=== PATIENT | female | born 1965 | race Caucasian/White ===

== ENCOUNTER 2022-04-27 16:04 | Inpatient (IN) ==
--- NOTE | 2022-04-27 17:03 | EKG ---
Test Reason : TACHYCARDIA Blood Pressure : */* mmHG Vent. Rate : 99 BPM Atrial Rate : 99 BPM P-R Int : 118 ms QRS Dur : 96 ms QT Int : 380 ms P-R-T Axes : 56 43 37 degrees QTc Int : 487 ms Normal sinus rhythm Septal infarct , age undetermined Lateral infarct , age undetermined Abnormal ECG No previous ECGs available Confirmed by Josué Hayes ([id number]) on 04/27/2022 6:08:14 PM Referred By: Confirmed By: Josué Hayes
[2022-04-27 17:08] LABS: ALANINE AMINOTRANSFERASE 8 Units/L (12-78); ALBUMIN 3.1 g/dL (3.4-5.0); ALKALINE PHOSPHATASE 78 Units/L (46-116); ASPARTATE AMINO TRANSFERASE 23 Units/L (15-37); BLOOD UREA NITROGEN 5 mg/dL (7-18); CALCIUM 8.4 mg/dL (8.5-10.1); CARBON DIOXIDE 29.8 mmol/L (21-32); CHLORIDE 107 mmol/L (98-107); COR CA(FOR HYPOALB) 9.1 mg/dL (8.5-10.1); SODIUM 144 mmol/L (136-145); TOTAL PROTEIN 6.1 g/dL (6.4-8.2); eGFR NON BLACK RACES > 60 (>60)
[2022-04-27 17:23] LABS: BILIRUBIN,URINE 1+ (NEGATIVE); BLOOD/HEMOGLOBIN,URINE 1+ (NEGATIVE); GLUCOSE, URINE NEGATIVE (NEGATIVE); KETONES,URINE 1+ (NEGATIVE); LEUKOCYTE ESTERASE ,URINE 1+ (NEGATIVE); NITRITES,URINE NEGATIVE (NEGATIVE); PROTEIN,URINE 2+ (NEGATIVE); UROBILINOGEN,URINE 3+ (NORMAL)
--- NOTE | 2022-04-27 17:23 | DR.GENAD ---
HPI Time Seen Time Seen by Provider: 04/27/22 17:00 PCP Primary Care Physician: KYMBERLY Complaint/Symptoms Chief Complaint Doctors Comments: BROUGHT IN BY CHER KWON BECAUSE SHE WAS EMACIATED AT HOME AND HAD BEEN WITHOUT FOOD AND ELECTRICITY AND WATER FOR ABOUT 2 WEEKS AND HER MOTHER WHO IS HER CAETAKER 2 DAYS AGO. HERE FOR FURTHER EVALUATION. Chief Complaint:: PT. WAS BROUGHT INTO THE ER PER NOAH OSBORN AUTOMATIC OUTSOLE CUTTER. PT'S MOTHER TODAY AND PT. IS NOW HOMELESS. PT. HAS SWELLING TO BLE. PT. HAS NOT SEEN A DOCTOR IN OVER A YEAR. PT. HAS NOT HAD ANYTHING TO EAT OR DRINK SINCE THE LIGHTS WERE TURNED OFF ON Apr. NO RUNNING WATER AT HOME NOR ANY FOOD IN THE HOME. POOR LIVING CONDITIONS ACCORDING TO APS. PT. DENIES PAIN. MOTHER HAD BEEN FOR ABOUT 2 DAYS PRIOR TO PT. LETTING SOMEONE KNOW MOTHER HAD PASSED. COVID-19 Coronavirus risk:travel/contact w/high risk person: No Has patient experienced Coronavirus symptoms: No Source History Provided: Patient and Other Mode of Arrival Mode of Arrival: Ambulatory Timing Onset of Chief Complaint: 04/27/22 PMH PMH Past Medical History: No Past Surgical History: No Surgical History: No History Family History History of Family Medical Conditions: No Social History Does patient currently use any type of tobacco product: No Have you used tobacco products in the last 12 months: No Type of Tobacco Use: None Does any household member use tobacco: No Alcohol Use: None Do you use any recreational Drugs:: No Lives Where: Homeless Travel Risk Coronavirus risk:travel/contact w/high risk person: No Has patient experienced Coronavirus symptoms: No Infectious screening In the last 2 months have you had wt loss of >10#?: NO Have you had fever, night sweats or hemotysis?: No Have you traveled outside the country in the last 6 months?: No Isolation: Standard ROS Review of Systems Constitutional: Malaise, Weakness, Fatigue and Other (CACHECTIC,MALNURISHED,ANEMIC) Eyes: No Symptoms Reported ENTM: No Symptoms Reported Respiratoy: No Symptoms Reported Cardiovascular: No Symptoms Reported Gastrointestinal/Abdominal: No Symptoms Reported Genitourinary: No Symptoms Reported Neurological: No Symptoms Reported Musculoskeletal: No Symptoms Reported Integumentary: No Symptoms Reported Hematologic/Lymphatic: Anemia Endocrine: No Symptoms Reported Psychiatric: No Symptoms Reported PE Vital Signs Vitals: Temperature 99.2 F Pulse Rate 90 Respiratory Rate 18 Blood Pressure 128/62 O2 Sat by Pulse Oximetry 100 General Limitations: Physical Limitation (PHYSICAL LIMITATIONS DUE TO WEAKNESS) General Appearance: Lethargic and Cachectic Head Head Exam: Normal Inspection, Atraumatic and Normocephalic Eyes Eye exam: Normal Appearance and EOMI ENT ENT Exam: Normal Exam, Normal Oropharynx and Normal External Ear Exam External Ear Exam: Normal External Inspection TM/Canal Exam: Bilateral: Normal Nose Exam: Normal Nose Exam Mouth Exam: Normal Inspection Throat Exam: Normal Inspection Neck Neck Exam: Normal Inspection Chest Chest Inspection: Normal Inspection and Symmetric Chest Wall Rise Respiratory Respiratory Exam: Normal Lung Sounds Bilat Respiratory Exam: Bilateral: Clear to Auscultation Cardiovascular Cardiovascular Exam: Tachycardia Abdominal Exam Abdominal Exam: Normal Inspection and Normal Bowel Sounds Extremities Extremities Exam: Edema (NON PITTING EDEMA) Back Back Exam: Normal Inspection and Full ROM Neurologic Neurological Exam: Alert, Oriented X3 and CN II-XII Intact Psychiatric Psychiatric Exam: Normal Affect Skin Skin Exam: Warm, Dry and Intact MDM Differential Diagnosis Differential Diagnosis: MALNOURISHED, CACHECTIC,ANEMIA,DEHYDRATION COURSE Treatment Treatment: PATIENT WAS FOUND TO BE ANEMIC WITH HGB OF 5.7 AND HEART RATE BETWEEN 140-180. WAS GIVEN A TOTAL OF 15MG OF CARDIXEM BEFORE HEART RATE DECREASED TO THE NINETIES. WAS GIVEN A BOLUS OF 1 LITER NACL AND 800MG OF MAG OXIDE AND 40 MEQ OF KCL. PATIENT WAS SIGNED OUT TO DR YODER FOR FURTHER EVALUATION AND PROBABLE ADMISSION. ROR Labs Reviewed Result Diagrams: 04/29/22 03:40 04/29/22 03:40 Laboratory: WBC 4.2 X10^3/uL (3.6-10.0) 04/27/22 16:50 RBC 4.26 X10^6/uL (3.5-5.4) 04/27/22 16:50 Hgb 5.4 g/dL (12.0-16.0) L* 04/27/22 16:50 Hct 20.8 % (36.0-47.0) L 04/27/22 16:50 MCV 48.8 fL (80.0-100.0) L 04/27/22 16:50 MCH 12.7 pg (27.0-34.0) L 04/27/22 16:50 MCHC 26.1 g/dL (33.0-35.0) L 04/27/22 16:50 RDW 23.5 % (11.6-16.5) H 04/27/22 16:50 Plt Count 95 X10^3/uL (150.0-450.0) L 04/27/22 16:50 Plt Count Comment Decreased (ADEQUATE) A 04/27/22 16:50 MPV 8.1 fL (7.4-11.0) 04/27/22 16:50 Neut % (Auto) 52.6 % (42.0-75.0) 04/27/22 16:50 Lymph % (Auto) 30.5 % (21.0-51.0) 04/27/22 16:50 [place] % (Auto) 12.1 % (0.0-13.0) 04/27/22 16:50 Eos % (Auto) 2.5 % (0.9-2.9) 04/27/22 16:50 Baso % (Auto) 2.3 % (0.2-1.0) H 04/27/22 16:50 Neut # (Auto) 2.2 x10^3/uL (2.2-4.8) 04/27/22 16:50 Lymph # (Auto) 1.3 X10^3/uL (1.3-2.9) 04/27/22 16:50 [place] # (Auto) 0.5 x10^3/uL (0.3-0.8) 04/27/22 16:50 Eos # (Auto) 0.1 x10^3/uL (0.0-0.2) 04/27/22 16:50 Baso # (Auto) 0.1 X10^3/uL (0.0-0.1) 04/27/22 16:50 Absolute Nucleated RBC 0.3 /100WBC 04/27/22 16:50 Plt Morphology Comment Normal (NORMAL) 04/27/22 16:50 RBC Morphology Abnormal (NORMAL) A 04/27/22 16:50 Hypochromasia 3+ A 04/27/22 16:50 Anisocytosis 3+ A 04/27/22 16:50 Microcytosis 3+ A 04/27/22 16:50 Target Cells Present 04/27/22 16:50 Tear Drop Cells Present 04/27/22 16:50 Schistocytes Present 04/27/22 16:50 Sodium 144 mmol/L (136-145) 04/27/22 16:50 Corrected Sodium TNP 04/27/22 16:50 Potassium 3.0 mmol/L (3.5-5.1) L 04/27/22 16:50 Chloride 107 mmol/L (98-107) 04/27/22 16:50 Carbon Dioxide 29.8 mmol/L (21-32) 04/27/22 16:50 BUN 5 mg/dL (7-18) L 04/27/22 16:50 Creatinine 1.00 mg/dL (0.55-1.02) 04/27/22 16:50 Est GFR (MDRD) Af Amer > 60 (>60) 04/27/22 16:50 Est GFR (MDRD) Non-Af > 60 (>60) 04/27/22 16:50 Glucose 94 mg/dL (65-99) 04/27/22 16:50 Calcium 8.4 mg/dL (8.5-10.1) L 04/27/22 16:50 Corrected Calcium 9.1 mg/dL (8.5-10.1) 04/27/22 16:50 Magnesium 1.4 mg/dL (2.0-2.9) L 04/27/22 16:50 Total Bilirubin 1.50 mg/dL (0.2-1.0) H 04/27/22 16:50 AST 23 Units/L (15-37) 04/27/22 16:50 ALT 8 Units/L (12-78) L 04/27/22 16:50 Alkaline Phosphatase 78 Units/L (46-116) 04/27/22 16:50 Creatine Kinase 62 Units/L (26-192) 04/27/22 16:52 Troponin I High Sens 8.2 ng/L (4.0-60.0) 04/27/22 16:52 Total Protein 6.1 g/dL (6.4-8.2) L 04/27/22 16:50 Albumin 3.1 g/dL (3.4-5.0) L 04/27/22 16:50 Globulin 3.0 g/dL (2.5-4.5) 04/27/22 16:50 Albumin/Globulin Ratio 1.0 Ratio (1.1-2.1) L 04/27/22 16:50 Specimen Type Clean catch urine 04/27/22 16:38 Urine Color Dark yellow (YELLOW) 04/27/22 16:38 Urine Appearance Clear (CLEAR) 04/27/22 16:38 Urine pH 6.0 (5.0 - 8.0) 04/27/22 16:38 Ur Specific [place] 1.025 (1.000-1.030) 04/27/22 16:38 Urine Protein 2+ (NEGATIVE) 04/27/22 16:38 Urine Glucose (UA) Negative (NEGATIVE) 04/27/22 16:38 Urine Ketones 1+ (NEGATIVE) 04/27/22 16:38 Urine Blood 1+ (NEGATIVE) 04/27/22 16:38 Urine Nitrite Negative (NEGATIVE) 04/27/22 16:38 Urine Bilirubin 1+ (NEGATIVE) 04/27/22 16:38 Urine Urobilinogen 3+ (NORMAL) 04/27/22 16:38 Ur Leukocyte Esterase 1+ (NEGATIVE) 04/27/22 16:38 Urine RBC 0-2 /HPF (0-3) 04/27/22 16:38 Urine WBC 0-2 /HPF (0-5) 04/27/22 16:38 Ur Squamous Epith Cells Many /HPF (NEGATIVE) 04/27/22 16:38 Urine Bacteria 1+ /HPF (NEGATIVE) 04/27/22 16:38 Hyaline Casts Many /LPF (NEGATIVE) 04/27/22 16:38 Granular Casts Rare /LPF (NEGATIVE) 04/27/22 16:38 Urine Mucus Moderate /HPF (NEGATIVE) 04/27/22 16:38 Ur Culture Indicated? No/not indicated 04/27/22 16:38 Blood Type O POSITIVE 04/27/22 17:25 Antibody Screen Negative 04/27/22 17:25 Crossmatch See Detail 04/27/22 17:25 Opioid Opioid Risk Tool Age (Isaiah box if 16-45): No History of Preadolescent Sexual Abuse: No Total: 0 Total Score Risk Category: Low Risk Copyright: Sj STEPHENS predicting aberrant behaviors Discharge Plan Diagnosis Discharge Problem: Atrial fibrillation with rapid ventricular response, Anemia, Dehydration, Electrolyte imbalance Discharge Plan Patient Disposition: 09 ADMITTED INPATIENT Condition: Stable
[2022-04-27 17:32] LABS: COLOR,URINE DARK YELLOW (YELLOW)
[2022-04-27 17:33] LABS: APPEARANCE,URINE CLEAR (CLEAR); BACTERIA,URINE 1+ /HPF (NEGATIVE); HYALINE CASTS, URINE MANY /LPF (NEGATIVE); RBC,URINE 0-2 /HPF (0-3); SQUAMOUS EPITHELIAL CELL,UR MANY /HPF (NEGATIVE)
[2022-04-27 17:34] LABS: GRANULAR CASTS,URINE RARE /LPF (NEGATIVE)
[2022-04-27] MEDS ORDERED: CARDIZEM INJ 50 MG VIAL IVP ONE ×2 (17:57→19:19)
[2022-04-27 17:58] LABS: BASOPHILS # (AUTO) 0.1 X10^3/uL (0.0-0.1); BASOPHILS % (AUTO) 2.3 % (0.2-1.0); EOSINOPHILS # (AUTO) 0.1 x10^3/uL (0.0-0.2); EOSINOPHILS % (AUTO) 2.5 % (0.9-2.9); HEMATOCRIT 20.8 % (36.0-47.0); HEMOGLOBIN 5.4 g/dL (12.0-16.0); LYMPHOCYTES # (AUTO) 1.3 X10^3/uL (1.3-2.9); LYMPHOCYTES % (AUTO) 30.5 % (21.0-51.0); MEAN CORPUSCULAR HEMOGLOBIN 12.7 pg (27.0-34.0); MEAN CORPUSCULAR HGB CONC 26.1 g/dL (33.0-35.0); MEAN CORPUSCULAR VOLUME 48.8 fL (80.0-100.0); MEAN PLATELET VOLUME 8.1 fL (7.4-11.0); MONOCYTES # (AUTO) 0.5 x10^3/uL (0.3-0.8); MONOCYTES % (AUTO) 12.1 % (0.0-13.0); NEUTROPHILS # (AUTO) 2.2 x10^3/uL (2.2-4.8); NEUTROPHILS % (AUTO) 52.6 % (42.0-75.0); RED BLOOD COUNT 4.26 X10^6/uL (3.5-5.4); RED CELL DISTRIBUTION WIDTH 23.5 % (11.6-16.5); WHITE BLOOD COUNT 4.2 X10^3/uL (3.6-10.0)
[2022-04-27] MEDS ORDERED: CARDIZEM INJ 50 MG VIAL ONE (17:59)
--- NOTE | 2022-04-27 17:59 | EKG ---
Test Reason : AFIB Blood Pressure : */* mmHG Vent. Rate : 114 BPM Atrial Rate : 114 BPM P-R Int : * ms QRS Dur : 122 ms QT Int : 350 ms P-R-T Axes : * 57 3 degrees QTc Int : 482 ms Normal sinus rhythm Frequent pac's Nonspecific intraventricular conduction delay Nonspecific ST and T wave abnormality Abnormal ECG When compared with ECG of 27-APR-2022 17:02, (Unconfirmed) Current undetermined rhythm precludes rhythm comparison, needs review QRS duration has increased T wave inversion now evident in Inferior leads Confirmed by Josué Hayes ([id number]) on 04/27/2022 6:08:04 PM Referred By: Confirmed By: Josué Hayes
[2022-04-27 18:02] LABS: MICROCYTOSIS 3+; PLATELET MORPHOLOGY COMMENT NORMAL (NORMAL)
[2022-04-27 18:05] LABS: ANISOCYTOSIS 3+; SCHISTOCYTES PRESENT; TARGET CELLS PRESENT; TEAR DROP CELLS PRESENT
[2022-04-27 18:06] LABS: HYPOCHROMASIA 3+
[2022-04-27] MEDS ORDERED: NS 1,000 ML IV 1,000 ML IV ONE (18:50)
[2022-04-27] MEDS ORDERED: NS 1,000 ML IV 1,000 ML ONE ×2 (18:51→21:56)
[2022-04-27] MEDS ORDERED: K-DUR TAB 20 MEQ PO ONE ×2 (19:09→19:10)
[2022-04-27] MEDS ORDERED: MAG-OX TAB PO ONE (19:10)
[2022-04-27] MEDS ORDERED: ZOSYN VIAL 3.375 GRAMS IV ONE (19:25)
--- NOTE | 2022-04-27 21:16 | DR.GENAD ---
HPI Time Seen Time Seen by Provider: 04/27/22 17:00 PCP Primary Care Physician: KYMBERLY Complaint/Symptoms Chief Complaint:: PT. WAS BROUGHT INTO THE ER PER NOAH OSBORN OIL TANK CAR CLEANER. PT'S MOTHER TODAY AND PT. IS NOW HOMELESS. PT. HAS SWELLING TO BLE. PT. HAS NOT SEEN A DOCTOR IN OVER A YEAR. PT. HAS NOT HAD ANYTHING TO EAT OR DRINK SINCE THE LIGHTS WERE TURNED OFF ON Apr. NO RUNNING WATER AT HOME NOR ANY FOOD IN THE HOME. POOR LIVING CONDITIONS ACCORDING TO APS. PT. DENIES PAIN. MOTHER HAD BEEN FOR ABOUT 2 DAYS PRIOR TO PT. LETTING SOMEONE KNOW MOTHER HAD PASSED. COVID-19 Coronavirus risk:travel/contact w/high risk person: No Has patient experienced Coronavirus symptoms: No Source History Provided: Patient and Other Mode of Arrival Mode of Arrival: Ambulatory Timing Onset of Chief Complaint: 04/27/22 PMH PMH Past Medical History: No Past Surgical History: No Surgical History: No History Family History History of Family Medical Conditions: No Social History Does patient currently use any type of tobacco product: No Have you used tobacco products in the last 12 months: No Type of Tobacco Use: None Does any household member use tobacco: No Alcohol Use: None Do you use any recreational Drugs:: No Lives Where: Homeless Travel Risk Coronavirus risk:travel/contact w/high risk person: No Has patient experienced Coronavirus symptoms: No Infectious screening In the last 2 months have you had wt loss of >10#?: NO Have you had fever, night sweats or hemotysis?: No Have you traveled outside the country in the last 6 months?: No Isolation: Standard PE Vital Signs Vitals: Temperature 99.2 F Pulse Rate 90 Respiratory Rate 18 Blood Pressure 128/62 O2 Sat by Pulse Oximetry 100 MDM Differential Diagnosis Differential Diagnosis: A FIB WITH RVR, ELECTROLYTE IMBALANCE, DEHYDRATION, ANEMIA, ELECTROLYTE IMB COURSE Treatment Treatment: PATIENT SIGN OUT TO ME BY DR. GARCIA. DISCUSSED PATIENT WITH DR. CENTENO AND HE WILL ADMIT PATIENT. PATIENT STILL DO NOT WISH TO HAVE BLOOD TRANSFUSION. WILL CONTINUE TO ENCOURAGE HER. Education/Counseling Education/Counseling: Patient Educated On: Diagnosis ROR Labs Reviewed Laboratory Results Reviewed?: Yes Result Diagrams: 04/28/22 04:15 04/28/22 10:54 Laboratory: WBC 4.2 X10^3/uL (3.6-10.0) 04/27/22 16:50 RBC 4.26 X10^6/uL (3.5-5.4) 04/27/22 16:50 Hgb 5.4 g/dL (12.0-16.0) L* 04/27/22 16:50 Hct 20.8 % (36.0-47.0) L 04/27/22 16:50 MCV 48.8 fL (80.0-100.0) L 04/27/22 16:50 MCH 12.7 pg (27.0-34.0) L 04/27/22 16:50 MCHC 26.1 g/dL (33.0-35.0) L 04/27/22 16:50 RDW 23.5 % (11.6-16.5) H 04/27/22 16:50 Plt Count 95 X10^3/uL (150.0-450.0) L 04/27/22 16:50 Plt Count Comment Decreased (ADEQUATE) A 04/27/22 16:50 MPV 8.1 fL (7.4-11.0) 04/27/22 16:50 Neut % (Auto) 52.6 % (42.0-75.0) 04/27/22 16:50 Lymph % (Auto) 30.5 % (21.0-51.0) 04/27/22 16:50 [place] % (Auto) 12.1 % (0.0-13.0) 04/27/22 16:50 Eos % (Auto) 2.5 % (0.9-2.9) 04/27/22 16:50 Baso % (Auto) 2.3 % (0.2-1.0) H 04/27/22 16:50 Neut # (Auto) 2.2 x10^3/uL (2.2-4.8) 04/27/22 16:50 Lymph # (Auto) 1.3 X10^3/uL (1.3-2.9) 04/27/22 16:50 [place] # (Auto) 0.5 x10^3/uL (0.3-0.8) 04/27/22 16:50 Eos # (Auto) 0.1 x10^3/uL (0.0-0.2) 04/27/22 16:50 Baso # (Auto) 0.1 X10^3/uL (0.0-0.1) 04/27/22 16:50 Absolute Nucleated RBC 0.3 /100WBC 04/27/22 16:50 Plt Morphology Comment Normal (NORMAL) 04/27/22 16:50 RBC Morphology Abnormal (NORMAL) A 04/27/22 16:50 Hypochromasia 3+ A 04/27/22 16:50 Anisocytosis 3+ A 04/27/22 16:50 Microcytosis 3+ A 04/27/22 16:50 Target Cells Present 04/27/22 16:50 Tear Drop Cells Present 04/27/22 16:50 Schistocytes Present 04/27/22 16:50 Sodium 144 mmol/L (136-145) 04/27/22 16:50 Corrected Sodium TNP 04/27/22 16:50 Potassium 3.0 mmol/L (3.5-5.1) L 04/27/22 16:50 Chloride 107 mmol/L (98-107) 04/27/22 16:50 Carbon Dioxide 29.8 mmol/L (21-32) 04/27/22 16:50 BUN 5 mg/dL (7-18) L 04/27/22 16:50 Creatinine 1.00 mg/dL (0.55-1.02) 04/27/22 16:50 Est GFR (MDRD) Af Amer > 60 (>60) 04/27/22 16:50 Est GFR (MDRD) Non-Af > 60 (>60) 04/27/22 16:50 Glucose 94 mg/dL (65-99) 04/27/22 16:50 Calcium 8.4 mg/dL (8.5-10.1) L 04/27/22 16:50 Corrected Calcium 9.1 mg/dL (8.5-10.1) 04/27/22 16:50 Magnesium 1.4 mg/dL (2.0-2.9) L 04/27/22 16:50 Total Bilirubin 1.50 mg/dL (0.2-1.0) H 04/27/22 16:50 AST 23 Units/L (15-37) 04/27/22 16:50 ALT 8 Units/L (12-78) L 04/27/22 16:50 Alkaline Phosphatase 78 Units/L (46-116) 04/27/22 16:50 Creatine Kinase 62 Units/L (26-192) 04/27/22 16:52 Troponin I High Sens 8.2 ng/L (4.0-60.0) 04/27/22 16:52 Total Protein 6.1 g/dL (6.4-8.2) L 04/27/22 16:50 Albumin 3.1 g/dL (3.4-5.0) L 04/27/22 16:50 Globulin 3.0 g/dL (2.5-4.5) 04/27/22 16:50 Albumin/Globulin Ratio 1.0 Ratio (1.1-2.1) L 04/27/22 16:50 Specimen Type Clean catch urine 04/27/22 16:38 Urine Color Dark yellow (YELLOW) 04/27/22 16:38 Urine Appearance Clear (CLEAR) 04/27/22 16:38 Urine pH 6.0 (5.0 - 8.0) 04/27/22 16:38 Ur Specific [place] 1.025 (1.000-1.030) 04/27/22 16:38 Urine Protein 2+ (NEGATIVE) 04/27/22 16:38 Urine Glucose (UA) Negative (NEGATIVE) 04/27/22 16:38 Urine Ketones 1+ (NEGATIVE) 04/27/22 16:38 Urine Blood 1+ (NEGATIVE) 04/27/22 16:38 Urine Nitrite Negative (NEGATIVE) 04/27/22 16:38 Urine Bilirubin 1+ (NEGATIVE) 04/27/22 16:38 Urine Urobilinogen 3+ (NORMAL) 04/27/22 16:38 Ur Leukocyte Esterase 1+ (NEGATIVE) 04/27/22 16:38 Urine RBC 0-2 /HPF (0-3) 04/27/22 16:38 Urine WBC 0-2 /HPF (0-5) 04/27/22 16:38 Ur Squamous Epith Cells Many /HPF (NEGATIVE) 04/27/22 16:38 Urine Bacteria 1+ /HPF (NEGATIVE) 04/27/22 16:38 Hyaline Casts Many /LPF (NEGATIVE) 04/27/22 16:38 Granular Casts Rare /LPF (NEGATIVE) 04/27/22 16:38 Urine Mucus Moderate /HPF (NEGATIVE) 04/27/22 16:38 Ur Culture Indicated? No/not indicated 04/27/22 16:38 Blood Type O POSITIVE 04/27/22 17:25 Antibody Screen Negative 04/27/22 17:25 Crossmatch See Detail 04/27/22 17:25 Opioid Opioid Risk Tool Age (Isaiah box if 16-45): No History of Preadolescent Sexual Abuse: No Total: 0 Total Score Risk Category: Low Risk Copyright: Sj STEPHENS predicting aberrant behaviors Discharge Plan Diagnosis Discharge Problem: Atrial fibrillation with rapid ventricular response, Anemia, Dehydration, Electrolyte imbalance Discharge Plan Patient Disposition: ADMITTED INPATIENT Condition: Stable
[2022-04-27] MEDS: LOPRESSOR TAB 25 MG PO SCH (21:59)
--- NOTE | 2022-04-27 22:05 | EKG ---
Test Reason : A FIB Blood Pressure : */* mmHG Vent. Rate : 86 BPM Atrial Rate : 86 BPM P-R Int : 144 ms QRS Dur : 92 ms QT Int : 390 ms P-R-T Axes : 47 44 57 degrees QTc Int : 466 ms Normal sinus rhythm Septal infarct , age undetermined Abnormal ECG When compared with ECG of 27-APR-2022 17:57, QRS duration has decreased T wave inversion no longer evident in Inferior leads Nonspecific T wave abnormality has replaced inverted T waves in Anterior leads Confirmed by Josué Hayes ([id number]) on 04/30/2022 7:10:34 AM Referred By: Confirmed By: Josué Hayes
[2022-04-27] MEDS: NS 1,000 ML IV 1,000 ML IV SCH (22:07)
[2022-04-27 23:26] VITALS: BMI 33.5
--- NOTE | 2022-04-28 02:32 | RAD ---
HISTORYtachycardia Relevant Clinical InformationSTUDYCHEST, 1 VIEWCOMPARISONNoneFINDINGSThe trachea is midline. The cardiac silhouette is unremarkable. The lungs are clear without focal infiltrate or effusion. The bony thorax is unremarkable.IMPRESSIONNo acute cardiopulmonary findings .Electronically signed by: Marcelo Orosco (Apr 28, 2022 02:30:44)
[2022-04-28 04:32] LABS: INR 1.59 (0.8-1.3)
[2022-04-28 04:34] LABS: AMMONIA 36 umol/L (11-32)
[2022-04-28 04:37] LABS: ALANINE AMINOTRANSFERASE 8 Units/L (12-78); ALBUMIN 2.5 g/dL (3.4-5.0); ALKALINE PHOSPHATASE 72 Units/L (46-116); ASPARTATE AMINO TRANSFERASE 20 Units/L (15-37); BLOOD UREA NITROGEN 7 mg/dL (7-18); CALCIUM 7.8 mg/dL (8.5-10.1); CARBON DIOXIDE 30.8 mmol/L (21-32); CHLORIDE 108 mmol/L (98-107); CREATININE 0.65 mg/dL (0.55-1.02); MAGNESIUM 1.7 mg/dL (2.0-2.9); SODIUM 144 mmol/L (136-145); eGFR NON BLACK RACES > 60 (>60)
[2022-04-28 04:43] LABS: BASOPHILS # (AUTO) 0.1 X10^3/uL (0.0-0.1); LYMPHOCYTES # (AUTO) 1.7 X10^3/uL (1.3-2.9); MEAN PLATELET VOLUME 8.2 fL (7.4-11.0); NEUTROPHILS # (AUTO) 1.2 x10^3/uL (2.2-4.8); RED CELL DISTRIBUTION WIDTH 23.5 % (11.6-16.5); WHITE BLOOD COUNT 3.7 X10^3/uL (3.6-10.0)
[2022-04-28 04:56] LABS: BASOPHILS % (AUTO) 1.7 % (0.2-1.0); EOSINOPHILS # (AUTO) 0.3 x10^3/uL (0.0-0.2); LYMPHOCYTES % (AUTO) 45.5 % (21.0-51.0); MEAN CORPUSCULAR HEMOGLOBIN 12.5 pg (27.0-34.0); MEAN CORPUSCULAR HGB CONC 26.4 g/dL (33.0-35.0); MEAN CORPUSCULAR VOLUME 47.3 fL (80.0-100.0); MONOCYTES # (AUTO) 0.5 x10^3/uL (0.3-0.8); MONOCYTES % (AUTO) 12.5 % (0.0-13.0); NEUTROPHILS % (AUTO) 33.3 % (42.0-75.0)
[2022-04-28 04:59] LABS: HEMATOCRIT 18.4 % (36.0-47.0); HEMOGLOBIN 4.9 g/dL (12.0-16.0)
[2022-04-28 05:05] LABS: HYPOCHROMASIA 3+; PLATELET MORPHOLOGY COMMENT NORMAL (NORMAL)
[2022-04-28 05:06] LABS: ANISOCYTOSIS 3+; MICROCYTOSIS 3+; TARGET CELLS 2+
[2022-04-28 05:27] LABS: POIKILOCYTOSIS 2+
[2022-04-28 05:39] LABS: STOMATOCYTES SLIGHT; TEAR DROP CELLS 1+
[2022-04-28 05:40] LABS: SCHISTOCYTES 1+; SPHEROCYTES SLIGHT
[2022-04-28] MEDS ORDERED: POTASSIUM CHLORIDE LIQ 20 MEQ UDC PO PRN (06:24)
[2022-04-28] MEDS ORDERED: MICRO K EXTEN CAP 10 MEQ PO PRN (06:24)
[2022-04-28] MEDS ORDERED: K-RIDER 10 MEQ/NS 100 ML 10 MEQ/100 ML BAG IV PRN (06:24)
[2022-04-28] MEDS ORDERED: POTASSIUM CHL 60 MEQ/NS 0.45% 500 ML IV PRN (06:24)
[2022-04-28] MEDS ORDERED: POTASSIUM CHL 40 MEQ/NS 0.45% 500 ML IV PRN (06:24)
[2022-04-28] MEDS ORDERED: KLOR-CON PO PRN (06:24)
[2022-04-28] MEDS ORDERED: MAGNESIUM SULFATE 1 GRAM/100 mL PREMIX 1 G/100 ML BAG IV ONE (06:27)
[2022-04-28] MEDS: MAGNESIUM SULFATE 1 GRAM/100 mL PREMIX 1 G/100 ML BAG IV PRN ×2 (06:34→08:31)
[2022-04-28] MEDS: PROTONIX INJ 40 MG VIAL IVP SCH ×2 (08:30→21:14)
[2022-04-28] MEDS: LOPRESSOR TAB 25 MG PO SCH ×2 (08:30→21:14)
[2022-04-28] MEDS: K-DUR TAB 20 MEQ PO PRN (08:30)
[2022-04-28] MEDS ORDERED: TYLENOL 325 MG TAB PO ONE ×2 (08:38→15:31)
[2022-04-28] MEDS ORDERED: BENADRYL CAP 50 MG PO ONE (08:38)
[2022-04-28] MEDS ORDERED: INFeD or DEXFERRUM 25 MG in NS 100 ML IV 100 ML IV ONE (09:00)
[2022-04-28] MEDS ORDERED: INFeD or DEXFERRUM 975 MG in NS 500 ML IV 500 ML IV ONE (10:00)
[2022-04-28] MEDS ORDERED: BENADRYL CAP/TAB 25 MG PO ONE ×2 (15:31→15:35)
[2022-04-28] MEDS ORDERED: NS 500 ML IV 500 ML IV ONE (15:33)
[2022-04-28] MEDS: NS 1,000 ML IV 1,000 ML IV SCH (15:45)
--- NOTE | 2022-04-28 18:15 | DR.H&P ---
H&P - History & Physical for Day of: H&P Date: 04/27/22 - Chief Complaint Chief Complaint: WEAKNESS (BROUGHT IN BY APS WORKER FOR MEDICAL EVALUATION) - History of Present Illness History of Present Illness: PT IS 57 WF, BROUGHT TO ER BY APS WORKER FOR A MEDICAL EVALUATION. 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 APS REPORTS PT WAS WITHOUT FOOD, ELECTRICITY AND WATER FOR APPROX 2 WEEKS. PT'S MOTHER AT HOME ~ 2 DAYS PRIOR TO PATIENT BEING FOUND AT HOME ALONE. PT HAS PMH OF ANEMIA AND LYMPHAEDEMA. - Past Medical History Additional Medical History: ANEMIA, LYMPHAEDEMA - Past Surgical History Surgical History: No History - Social History Does patient currently use any type of tobacco product: No Have you used tobacco products in the last 12 months: No Type of Tobacco Use: None Does any household member use tobacco: No Alcohol Use: None Drug Use: None - Medications Home Medications: Penicillins Allergy (Verified 04/28/22 08:36) CONTINUE taking the following medications NK 04/27/22 [History] - Review of Systems Constitutional: Weakness, Malaise Eyes: No Symptoms Reported ENT: No Symptoms Reported Respiratory: SOB with Excertion Cardiovascular: Edema Gastrointestinal: denies: Abdominal Pain Genitourinary: No Symptoms Reported Musculoskeletal: No Symptoms Reported Skin: Other (DIFFUSE PALLOR) Neurological: Weakness (GENERALIZED MUSCLE WEAKNESS) - Physical Exam Vital Signs: Temperature 98.3 F Pulse Rate [Apical] 69 Pulse Rate 90 Respiratory Rate 18 Blood Pressure [Right Arm] 126/65 Blood Pressure 128/62 O2 Sat by Pulse Oximetry 99 Oriented: Person Eyes: Normal Ear: Normal Nose: Normal Throat: Dry Respiratory: RLL Diminished, LLL Diminished Cardiovascular: Irregular, Edema : Normal Auscultation: Bowel Sounds: Increased Palpation: Normal Tenderness: Epigastric, Mild Skin: Decreased Turgur Musculoskeletal: Right, Left, Leg, Swelling, Tender Psychiatric: Anxiety Mood Description: Anxious Affect: Anxious Speech Pattern: Clear, Appropriate - Assessment/Plan (1) Atrial fibrillation with RVR Status: Acute Plan: ADMIT ICU, CARDIAC MONITORING AND EKG. ANEMIA PANEL, SUPPLMENTAL O2. CARDIA ENZYMES, OCCULT STOOL. CHEST XRAY ON ADMISSION, BP CONTROL. IV HYDRATION AND ELECTROLYTE REPLACEMENT, IRON REPLACEMENT AND BLOOD TRANSFUSION PER PROTOCOL. (2) Emaciation Status: Acute (3) Anemia Status: Acute (4) Dehydration Status: Acute (5) Mental handicap Status: Acute (6) Lymphadenitis, acute Status: Acute - Allergies Allergies/Adverse Reactions: Allergies Allergy/AdvReac Type Severity Reaction Status Date / Time Penicillins Allergy Verified 04/28/22 08:36
[2022-04-29] MEDS: NS 1,000 ML IV 1,000 ML IV SCH ×3 (02:20→23:13)
[2022-04-29 03:54] LABS: BASOPHILS # (AUTO) 0.1 X10^3/uL (0.0-0.1); MEAN CORPUSCULAR VOLUME 55.2 fL (80.0-100.0); MEAN PLATELET VOLUME 8.3 fL (7.4-11.0); WHITE BLOOD COUNT 4.1 X10^3/uL (3.6-10.0)
[2022-04-29 04:02] LABS: ALANINE AMINOTRANSFERASE 9 Units/L (12-78); ALBUMIN 2.5 g/dL (3.4-5.0); ALKALINE PHOSPHATASE 85 Units/L (46-116); BLOOD UREA NITROGEN 6 mg/dL (7-18); CARBON DIOXIDE 27.9 mmol/L (21-32); CHLORIDE 112 mmol/L (98-107); COR CA(FOR HYPOALB) 9.2 mg/dL (8.5-10.1); CREATININE 0.65 mg/dL (0.55-1.02); MAGNESIUM 1.8 mg/dL (2.0-2.9); SODIUM 146 mmol/L (136-145); eGFR NON BLACK RACES > 60 (>60)
[2022-04-29 04:05] LABS: BASOPHILS % (AUTO) 3.1 % (0.2-1.0); EOSINOPHILS # (AUTO) 0.4 x10^3/uL (0.0-0.2); EOSINOPHILS % (AUTO) 10.5 % (0.9-2.9); HEMATOCRIT 22.9 % (36.0-47.0); LYMPHOCYTES % (AUTO) 48.2 % (21.0-51.0); MEAN CORPUSCULAR HEMOGLOBIN 15.6 pg (27.0-34.0); MEAN CORPUSCULAR HGB CONC 28.3 g/dL (33.0-35.0); MONOCYTES # (AUTO) 0.4 x10^3/uL (0.3-0.8); NEUTROPHILS # (AUTO) 1.1 x10^3/uL (2.2-4.8); NEUTROPHILS % (AUTO) 27.2 % (42.0-75.0); RED BLOOD COUNT 4.14 X10^6/uL (3.5-5.4); RED CELL DISTRIBUTION WIDTH 30.5 % (11.6-16.5)
[2022-04-29 04:21] LABS: ASPARTATE AMINO TRANSFERASE 21 Units/L (15-37)
[2022-04-29 04:22] LABS: HEMOGLOBIN 6.5 g/dL (12.0-16.0)
[2022-04-29 04:23] LABS: PLATELET MORPHOLOGY COMMENT NORMAL (NORMAL)
[2022-04-29 04:24] LABS: ANISOCYTOSIS 3+; HYPOCHROMASIA 3+; MICROCYTOSIS 3+; SCHISTOCYTES PRESENT; TARGET CELLS PRESENT; TEAR DROP CELLS PRESENT
[2022-04-29] MEDS: MAGNESIUM SULFATE 1 GRAM/100 mL PREMIX 1 G/100 ML BAG IV PRN ×2 (04:50→08:00)
[2022-04-29] MEDS: K-DUR TAB 20 MEQ PO PRN (08:22)
[2022-04-29] MEDS: LOPRESSOR TAB 25 MG PO SCH ×2 (08:22→20:39)
[2022-04-29] MEDS: PROTONIX INJ 40 MG VIAL IVP SCH ×2 (08:24→20:39)
[2022-04-29] MEDS ORDERED: VITAMIN B-12 INJ IM ONE (08:59)
--- NOTE | 2022-04-29 09:09 | EKG ---
Test Reason : HX AFIB Blood Pressure : */* mmHG Vent. Rate : 63 BPM Atrial Rate : 63 BPM P-R Int : 142 ms QRS Dur : 106 ms QT Int : 470 ms P-R-T Axes : 44 25 59 degrees QTc Int : 480 ms Normal sinus rhythm Cannot rule out Inferior infarct , age undetermined Abnormal ECG When compared with ECG of 27-APR-2022 22:00, (Unconfirmed) Inverted T waves have replaced nonspecific T wave abnormality in Anterior leads [id number] Confirmed by Josué Hayes ([id number]) on 04/30/2022 7:07:36 AM Referred By: Confirmed By: Josué Hayes
[2022-04-29 09:23] LABS: BASOPHILS # (AUTO) 0.1 X10^3/uL (0.0-0.1); BASOPHILS % (AUTO) 3.3 % (0.2-1.0); EOSINOPHILS # (AUTO) 0.5 x10^3/uL (0.0-0.2); HEMATOCRIT 23.9 % (36.0-47.0); LYMPHOCYTES # (AUTO) 1.5 X10^3/uL (1.3-2.9); LYMPHOCYTES % (AUTO) 38.6 % (21.0-51.0); MEAN CORPUSCULAR HEMOGLOBIN 15.6 pg (27.0-34.0); MEAN CORPUSCULAR HGB CONC 28.1 g/dL (33.0-35.0); MEAN CORPUSCULAR VOLUME 55.5 fL (80.0-100.0); MEAN PLATELET VOLUME 8.2 fL (7.4-11.0); MONOCYTES # (AUTO) 0.5 x10^3/uL (0.3-0.8); MONOCYTES % (AUTO) 12.3 % (0.0-13.0); NEUTROPHILS # (AUTO) 1.2 x10^3/uL (2.2-4.8); NEUTROPHILS % (AUTO) 31.8 % (42.0-75.0); RED BLOOD COUNT 4.31 X10^6/uL (3.5-5.4); RED CELL DISTRIBUTION WIDTH 31.7 % (11.6-16.5); WHITE BLOOD COUNT 3.8 X10^3/uL (3.6-10.0)
[2022-04-29] MEDS ORDERED: BENADRYL CAP/TAB 25 MG PO ONE (09:37)
[2022-04-29] MEDS ORDERED: TYLENOL 325 MG TAB PO ONE (09:39)
[2022-04-29 09:44] LABS: HEMOGLOBIN 6.7 g/dL (12.0-16.0)
[2022-04-29 09:51] LABS: ANISOCYTOSIS 3+; HYPOCHROMASIA 3+; MICROCYTOSIS 3+; PLATELET MORPHOLOGY COMMENT NORMAL (NORMAL); POIKILOCYTOSIS 1+; TARGET CELLS 2+; TEAR DROP CELLS 1+
[2022-04-29 09:52] LABS: SCHISTOCYTES 1+
[2022-04-29] MEDS: HEMOCYTE-PLUS PO SCH (10:28)
[2022-04-29] MEDS: TAB-A-VITE PO SCH (10:29)
[2022-04-29] MEDS ORDERED: NS 500 ML IV 500 ML IV ONE ×2 (10:31→12:00)
--- NOTE | 2022-04-29 11:25 | RAD ---
HISTORYSOB, A-FIBSTUDYCHEST, 1 VIEWCOMPARISONFebruary 2022TECHNIQUEChest x-ray single viewFINDINGSHeart size and mediastinal contours are normal. Lungs are clear as are the pleural spaces. No free air or pneumothorax. No acute bony abonormality.IMPRESSIONNo acute radiographic abnormalities of the chestElectronically signed by: CHINO BAPTISTE (Apr 29, 2022 11:24:25)
--- NOTE | 2022-04-29 12:22 | VAS ---
HISTORY: [Extremity pain, swelling, and edema]Study: Bilateral lower extremity Doppler venous ultrasound.TECHNIQUE: Multiple ford scale and color flow Doppler images of the deep venous system were obtained of the [right and left] lower extremity.FINDINGS: The deep venous system of the [right and left lower extremities were] evaluated from the level of the common femoral veins through the popliteal veins, bilaterally. Normal color flow and augmentation can be observed. In addition, normal compression is seen throughout the deep venous system. No Mcneil's cyst is seen.IMPRESSION:1. Negative examination for DVT.Electronically signed by: MARIA ESTHER FINCH III (Apr 29, 2022 12:20:38)
[2022-04-29 12:35] LABS: FREE T4 (FREE THYROXINE) 1.01 ng/dL (0.76-1.46); TSH (3RD GENERATION) 5.684 uIU/mL (0.358-3.74)
[2022-04-29 19:05] LABS: HEMATOCRIT 30.6 % (36.0-47.0)
[2022-04-29 19:09] LABS: HEMOGLOBIN 8.9 g/dL (12.0-16.0)
[2022-04-30 05:36] LABS: ALANINE AMINOTRANSFERASE 9 Units/L (12-78); ALBUMIN 2.6 g/dL (3.4-5.0); ALKALINE PHOSPHATASE 98 Units/L (46-116); ASPARTATE AMINO TRANSFERASE 22 Units/L (15-37); BLOOD UREA NITROGEN 5 mg/dL (7-18); CALCIUM 8.1 mg/dL (8.5-10.1); CARBON DIOXIDE 27.5 mmol/L (21-32); CHLORIDE 112 mmol/L (98-107); COR CA(FOR HYPOALB) 9.2 mg/dL (8.5-10.1); MAGNESIUM 1.8 mg/dL (2.0-2.9); SODIUM 145 mmol/L (136-145); TOTAL PROTEIN 5.2 g/dL (6.4-8.2); eGFR NON BLACK RACES > 60 (>60)
[2022-04-30 05:37] LABS: HEMOGLOBIN 8.2 g/dL (12.0-16.0); MEAN CORPUSCULAR HEMOGLOBIN 17.4 pg (27.0-34.0); WHITE BLOOD COUNT 5.2 X10^3/uL (3.6-10.0)
[2022-04-30 05:41] LABS: BASOPHILS # (AUTO) 0.1 X10^3/uL (0.0-0.1); BASOPHILS % (AUTO) 1.9 % (0.2-1.0); EOSINOPHILS # (AUTO) 0.6 x10^3/uL (0.0-0.2); EOSINOPHILS % (AUTO) 11.9 % (0.9-2.9); HEMATOCRIT 27.8 % (36.0-47.0); LYMPHOCYTES # (AUTO) 1.7 X10^3/uL (1.3-2.9); LYMPHOCYTES % (AUTO) 33.7 % (21.0-51.0); MEAN CORPUSCULAR HGB CONC 29.5 g/dL (33.0-35.0); MEAN CORPUSCULAR VOLUME 59.2 fL (80.0-100.0); MEAN PLATELET VOLUME 8.8 fL (7.4-11.0); MONOCYTES # (AUTO) 0.5 x10^3/uL (0.3-0.8); MONOCYTES % (AUTO) 9.8 % (0.0-13.0); NEUTROPHILS # (AUTO) 2.2 x10^3/uL (2.2-4.8); NEUTROPHILS % (AUTO) 42.7 % (42.0-75.0); RED CELL DISTRIBUTION WIDTH 36.9 % (11.6-16.5)
[2022-04-30 06:14] LABS: ANISOCYTOSIS 3+; HYPOCHROMASIA 3+; MICROCYTOSIS 3+; PLATELET MORPHOLOGY COMMENT NORMAL (NORMAL); POIKILOCYTOSIS 1+; TARGET CELLS PRESENT
[2022-04-30 06:15] LABS: SCHISTOCYTES PRESENT; TEAR DROP CELLS PRESENT
[2022-04-30] MEDS: MAGNESIUM SULFATE 1 GRAM/100 mL PREMIX 1 G/100 ML BAG IV PRN ×2 (08:25→12:49)
[2022-04-30] MEDS: CLARITIN PO SCH (08:27)
[2022-04-30] MEDS: HEMOCYTE-PLUS PO SCH (08:27)
[2022-04-30] MEDS: TAB-A-VITE PO SCH (08:27)
[2022-04-30] MEDS: K-DUR TAB 20 MEQ PO PRN (08:27)
[2022-04-30] MEDS: PROTONIX INJ 40 MG VIAL IVP SCH ×2 (08:28→20:34)
[2022-04-30] MEDS: LOPRESSOR TAB 25 MG PO SCH ×2 (08:28→20:34)
--- NOTE | 2022-04-30 12:07 | PCM.PROG ---
Progress Note Progress Note for Day of Date of Exam: 04/30/22 Subjective Subjective: Patient seen at bedside, no events overnight. She states she is feeling better. She has been tolerating PO intake. Denies any diarrhea. She is currently being treated for symptomatic anemia, thrombocytopenia and atrial fibrillation with RVR. She has been in NSR. She has received 4 units PRBCs. Denies active bleeding. Labs/imaging reviewed Hgb 8.2 Plt 66 Mg 1.8 LE US (-) for DVT Plan: Monitor Hgb, transfuse if < 8. Continue iron supplements. Continue tele, monitor HR. Patient has MR, intellectual disability, CM working on placement/discharge. Monitor AM labs, replace electrolytes prn. Discussed ambulation. Past Medical Family Social History Allergies: Allergies Penicillins Allergy (Verified 04/28/22 08:36) Vital Signs and I&O's Vital Signs: Temperature 98.2 F Pulse Rate [Apical] 72 Pulse Rate 90 Respiratory Rate 19 Blood Pressure [Right Arm] 150/77 Blood Pressure 128/62 O2 Sat by Pulse Oximetry 98 Intake and Output: Intake & Output 04/27/22 04/28/22 04/29/22 04/30/22 23:59 23:59 23:59 23:59 Intake Total 4892 / 4892 5229 / 5229 387 / 387 Output Total 2400 / 2400 1000 / 1000 Balance 4892 / 4892 2829 / 2829 -613 / -613 Physical Exam Oriented: Person Eyes: Normal Ear: Normal Nose: Normal Throat: Normal and Dry Cardiovascular: Normal and Edema (LE chronic lymphedema ) Auscultation: Bowel Sounds: Normal Tenderness: Normal Skin: Decreased Turgur Musculoskeletal: Right, Left, Leg and Swelling Psychiatric: Normal and Anxiety Mood Description: Calm Affect: Normal Speech Pattern: Clear and Appropriate Laboratory and Diagnostics Result Diagrams: 04/30/22 04:30 04/30/22 04:30 Labs: Laboratory WBC 5.2 X10^3/uL (3.6-10.0) 04/30/22 04:30 RBC 4.70 X10^6/uL (3.5-5.4) 04/30/22 04:30 Hgb 8.2 g/dL (12.0-16.0) L 04/30/22 04:30 Hct 27.8 % (36.0-47.0) L 04/30/22 04:30 MCV 59.2 fL (80.0-100.0) L 04/30/22 04:30 MCH 17.4 pg (27.0-34.0) L 04/30/22 04:30 MCHC 29.5 g/dL (33.0-35.0) L 04/30/22 04:30 RDW 36.9 % (11.6-16.5) H 04/30/22 04:30 Plt Count 66 X10^3/uL (150.0-450.0) L 04/30/22 04:30 Plt Count Comment Decreased (ADEQUATE) A 04/30/22 04:30 MPV 8.8 fL (7.4-11.0) 04/30/22 04:30 Neut % (Auto) 42.7 % (42.0-75.0) 04/30/22 04:30 Lymph % (Auto) 33.7 % (21.0-51.0) 04/30/22 04:30 [place] % (Auto) 9.8 % (0.0-13.0) 04/30/22 04:30 Eos % (Auto) 11.9 % (0.9-2.9) H 04/30/22 04:30 Baso % (Auto) 1.9 % (0.2-1.0) H 04/30/22 04:30 Neut # (Auto) 2.2 x10^3/uL (2.2-4.8) 04/30/22 04:30 Lymph # (Auto) 1.7 X10^3/uL (1.3-2.9) 04/30/22 04:30 [place] # (Auto) 0.5 x10^3/uL (0.3-0.8) 04/30/22 04:30 Eos # (Auto) 0.6 x10^3/uL (0.0-0.2) H 04/30/22 04:30 Baso # (Auto) 0.1 X10^3/uL (0.0-0.1) 04/30/22 04:30 Absolute Nucleated RBC 1.2 /100WBC 04/30/22 04:30 Plt Morphology Comment Normal (NORMAL) 04/30/22 04:30 RBC Morphology Abnormal (NORMAL) A 04/30/22 04:30 Dimorphic RBCs Present 04/30/22 04:30 Hypochromasia 3+ A 04/30/22 04:30 Poikilocytosis 1+ A 04/30/22 04:30 Anisocytosis 3+ A 04/30/22 04:30 Microcytosis 3+ A 04/30/22 04:30 Spherocytes Slight A 04/28/22 04:15 Target Cells Present 04/30/22 04:30 Tear Drop Cells Present 04/30/22 04:30 Stomatocytes Slight A 04/28/22 04:15 Acanthocytes (Spur) Present 04/30/22 04:30 Schistocytes Present 04/30/22 04:30 PT 18.4 SECONDS (11.8-14.3) 04/28/22 04:15 INR Target Range - 04/28/22 04:15 INR 1.59 (0.8-1.3) H 04/28/22 04:15 APTT 34.3 SECONDS (22.9-36.5) 04/28/22 04:15 PTT Comment - 04/28/22 04:15 D-Dimer 6.30 ug/ml (0.0-0.57) H 04/29/22 09:14 Sodium 145 mmol/L (136-145) 04/30/22 04:30 Corrected Sodium TNP 04/30/22 04:30 Potassium 3.6 mmol/L (3.5-5.1) 04/30/22 04:30 Chloride 112 mmol/L (98-107) H 04/30/22 04:30 Carbon Dioxide 27.5 mmol/L (21-32) 04/30/22 04:30 BUN 5 mg/dL (7-18) L 04/30/22 04:30 Creatinine 0.60 mg/dL (0.55-1.02) 04/30/22 04:30 Est GFR (MDRD) Af Amer > 60 (>60) 04/30/22 04:30 Est GFR (MDRD) Non-Af > 60 (>60) 04/30/22 04:30 Glucose 90 mg/dL (65-99) 04/30/22 04:30 Calcium 8.1 mg/dL (8.5-10.1) L 04/30/22 04:30 Corrected Calcium 9.2 mg/dL (8.5-10.1) 04/30/22 04:30 Magnesium 1.8 mg/dL (2.0-2.9) L 04/30/22 04:30 Iron 7 ug/dL (50-175) L 04/28/22 04:15 Transferrin 188 mg/dL (202-364) L 04/28/22 04:15 Ferritin 11 ng/mL (8-252) 04/28/22 04:15 Total Bilirubin 1.00 mg/dL (0.2-1.0) 04/30/22 04:30 AST 22 Units/L (15-37) 04/30/22 04:30 ALT 9 Units/L (12-78) L 04/30/22 04:30 Alkaline Phosphatase 98 Units/L (46-116) 04/30/22 04:30 Ammonia 36 umol/L (11-32) H 04/28/22 04:15 Creatine Kinase 62 Units/L (26-192) 04/27/22 16:52 Troponin I High Sens 8.2 ng/L (4.0-60.0) 04/27/22 16:52 Total Protein 5.2 g/dL (6.4-8.2) L 04/30/22 04:30 Albumin 2.6 g/dL (3.4-5.0) L 04/30/22 04:30 Globulin 2.6 g/dL (2.5-4.5) 04/30/22 04:30 Albumin/Globulin Ratio 1.0 Ratio (1.1-2.1) L 04/30/22 04:30 Vitamin B12 917 pg/mL (193-986) 04/28/22 04:15 Folate 11.6 ng/mL (>8.6) 04/28/22 04:15 Free T4 1.01 ng/dL (0.76-1.46) 04/29/22 09:14 TSH 3rd Generation 5.684 uIU/mL (0.358-3.74) H 04/29/22 09:14 Specimen Type Clean catch urine 04/27/22 16:38 Urine Color Dark yellow (YELLOW) 04/27/22 16:38 Urine Appearance Clear (CLEAR) 04/27/22 16:38 Urine pH 6.0 (5.0 - 8.0) 04/27/22 16:38 Ur Specific [place] 1.025 (1.000-1.030) 04/27/22 16:38 Urine Protein 2+ (NEGATIVE) 04/27/22 16:38 Urine Glucose (UA) Negative (NEGATIVE) 04/27/22 16:38 Urine Ketones 1+ (NEGATIVE) 04/27/22 16:38 Urine Blood 1+ (NEGATIVE) 04/27/22 16:38 Urine Nitrite Negative (NEGATIVE) 04/27/22 16:38 Urine Bilirubin 1+ (NEGATIVE) 04/27/22 16:38 Urine Urobilinogen 3+ (NORMAL) 04/27/22 16:38 Ur Leukocyte Esterase 1+ (NEGATIVE) 04/27/22 16:38 Urine RBC 0-2 /HPF (0-3) 04/27/22 16:38 Urine WBC 0-2 /HPF (0-5) 04/27/22 16:38 Ur Squamous Epith Cells Many /HPF (NEGATIVE) 04/27/22 16:38 Urine Bacteria 1+ /HPF (NEGATIVE) 04/27/22 16:38 Hyaline Casts Many /LPF (NEGATIVE) 04/27/22 16:38 Granular Casts Rare /LPF (NEGATIVE) 04/27/22 16:38 Urine Mucus Moderate /HPF (NEGATIVE) 04/27/22 16:38 Ur Culture Indicated? No/not indicated 04/27/22 16:38 Blood Type O POSITIVE 04/27/22 17:25 Antibody Screen Negative 04/27/22 17:25 Crossmatch See Detail 04/27/22 17:25 Plan (1) Atrial fibrillation with RVR: Status: Acute (2) Anemia: Status: Acute (3) Dehydration: Status: Acute (4) Mental handicap: Status: Acute (5) Emaciation: Status: Acute (6) Lymphedema due to chronic inflammation: Status: Acute (7) Electrolyte imbalance: Status: Acute
[2022-04-30] MEDS: NS 1,000 ML IV 1,000 ML IV SCH ×2 (18:38→20:34)
[2022-05-01 05:08] LABS: BASOPHILS # (AUTO) 0.2 X10^3/uL (0.0-0.1); EOSINOPHILS # (AUTO) 0.6 x10^3/uL (0.0-0.2); EOSINOPHILS % (AUTO) 9.5 % (0.9-2.9); HEMATOCRIT 28.4 % (36.0-47.0); HEMOGLOBIN 8.2 g/dL (12.0-16.0); LYMPHOCYTES # (AUTO) 1.8 X10^3/uL (1.3-2.9); LYMPHOCYTES % (AUTO) 28.9 % (21.0-51.0); MEAN CORPUSCULAR HEMOGLOBIN 17.4 pg (27.0-34.0); MEAN CORPUSCULAR HGB CONC 28.9 g/dL (33.0-35.0); MEAN PLATELET VOLUME 8.5 fL (7.4-11.0); MONOCYTES # (AUTO) 0.6 x10^3/uL (0.3-0.8); MONOCYTES % (AUTO) 9.5 % (0.0-13.0); NEUTROPHILS % (AUTO) 49.1 % (42.0-75.0); RED BLOOD COUNT 4.74 X10^6/uL (3.5-5.4); RED CELL DISTRIBUTION WIDTH 37.7 % (11.6-16.5); WHITE BLOOD COUNT 6.1 X10^3/uL (3.6-10.0)
[2022-05-01 05:18] LABS: ALANINE AMINOTRANSFERASE 8 Units/L (12-78); ALBUMIN 2.6 g/dL (3.4-5.0); ALKALINE PHOSPHATASE 98 Units/L (46-116); ASPARTATE AMINO TRANSFERASE 21 Units/L (15-37); BLOOD UREA NITROGEN 6 mg/dL (7-18); CALCIUM 8.4 mg/dL (8.5-10.1); CARBON DIOXIDE 27.9 mmol/L (21-32); CHLORIDE 112 mmol/L (98-107); COR CA(FOR HYPOALB) 9.5 mg/dL (8.5-10.1); CREATININE 0.62 mg/dL (0.55-1.02); MAGNESIUM 1.8 mg/dL (2.0-2.9); SODIUM 145 mmol/L (136-145); TOTAL PROTEIN 5.1 g/dL (6.4-8.2); eGFR NON BLACK RACES > 60 (>60)
[2022-05-01] MEDS: NS 1,000 ML IV 1,000 ML IV SCH ×2 (05:55→19:26)
[2022-05-01 05:58] LABS: ANISOCYTOSIS 3+; HYPOCHROMASIA 3+; PLATELET MORPHOLOGY COMMENT NORMAL (NORMAL); POIKILOCYTOSIS 2+
[2022-05-01 05:59] LABS: MICROCYTOSIS 2+; SCHISTOCYTES 1+; TARGET CELLS 1+; TEAR DROP CELLS SLIGHT
[2022-05-01] MEDS: MAGNESIUM SULFATE 1 GRAM/100 mL PREMIX 1 G/100 ML BAG IV PRN ×2 (06:19→08:53)
[2022-05-01] MEDS: K-DUR TAB 20 MEQ PO PRN (06:19)
[2022-05-01] MEDS: PROTONIX INJ 40 MG VIAL IVP SCH ×2 (08:53→20:18)
[2022-05-01] MEDS: HEMOCYTE-PLUS PO SCH (08:53)
[2022-05-01] MEDS: CLARITIN PO SCH (08:53)
[2022-05-01] MEDS: LOPRESSOR TAB 25 MG PO SCH ×2 (08:53→20:18)
[2022-05-01] MEDS: TAB-A-VITE PO SCH (08:53)
--- NOTE | 2022-05-01 11:52 | PCM.PROG ---
Progress Note Progress Note for Day of Date of Exam: 05/01/22 Subjective Subjective: Patient seen at bedside, no events overnight. She states she is feeling better. She has been tolerating PO intake. Denies any diarrhea. She is currently being treated for symptomatic anemia, thrombocytopenia and atrial fibrillation with RVR. She has been in NSR. She has received 4 units PRBCs. Denies active bleeding. Labs/imaging reviewed Hgb 8.2 Plt 80 Mg 1.8 LE US (-) for DVT Plan: Monitor Hgb, transfuse if < 8. Continue iron supplements. Continue tele, monitor HR. Patient has MR, intellectual disability. Monitor AM labs, replace electrolytes prn. Discussed ambulation. Past Medical Family Social History Allergies: Allergies Penicillins Allergy (Verified 04/28/22 08:36) Vital Signs and I&O's Vital Signs: Temperature 97.1 F Pulse Rate [Apical] 91 Pulse Rate 90 Respiratory Rate 20 Blood Pressure [Right Arm] 144/85 Blood Pressure 128/62 O2 Sat by Pulse Oximetry 98 Intake and Output: Intake & Output 04/28/22 04/29/22 04/30/22 05/01/22 23:59 23:59 23:59 23:59 Intake Total 4892 / 4892 5229 / 5229 4908 / 4908 628 / 628 Output Total 2400 / 2400 3800 / 3800 400 / 400 Balance 4892 / 4892 2829 / 2829 1108 / 1108 228 / 228 Physical Exam Oriented: Person Eyes: Normal Ear: Normal Nose: Normal Throat: Normal Cardiovascular: Normal and Edema (LE chronic lymphedema ) Auscultation: Bowel Sounds: Normal Tenderness: Normal Skin: Decreased Turgur Musculoskeletal: Right, Left, Leg and Swelling Psychiatric: Normal Mood Description: Calm Affect: Normal Speech Pattern: Clear and Appropriate Laboratory and Diagnostics Result Diagrams: 05/01/22 04:13 05/01/22 04:13 Labs: Laboratory WBC 6.1 X10^3/uL (3.6-10.0) 05/01/22 04:13 RBC 4.74 X10^6/uL (3.5-5.4) 05/01/22 04:13 Hgb 8.2 g/dL (12.0-16.0) L 05/01/22 04:13 Hct 28.4 % (36.0-47.0) L 05/01/22 04:13 MCV 60.0 fL (80.0-100.0) L 05/01/22 04:13 MCH 17.4 pg (27.0-34.0) L 05/01/22 04:13 MCHC 28.9 g/dL (33.0-35.0) L 05/01/22 04:13 RDW 37.7 % (11.6-16.5) H 05/01/22 04:13 Plt Count 80 X10^3/uL (150.0-450.0) L 05/01/22 04:13 Plt Count Comment Decreased (ADEQUATE) A 05/01/22 04:13 MPV 8.5 fL (7.4-11.0) 05/01/22 04:13 Neut % (Auto) 49.1 % (42.0-75.0) 05/01/22 04:13 Lymph % (Auto) 28.9 % (21.0-51.0) 05/01/22 04:13 [place] % (Auto) 9.5 % (0.0-13.0) 05/01/22 04:13 Eos % (Auto) 9.5 % (0.9-2.9) H 05/01/22 04:13 Baso % (Auto) 3.0 % (0.2-1.0) H 05/01/22 04:13 Neut # (Auto) 3.0 x10^3/uL (2.2-4.8) 05/01/22 04:13 Lymph # (Auto) 1.8 X10^3/uL (1.3-2.9) 05/01/22 04:13 [place] # (Auto) 0.6 x10^3/uL (0.3-0.8) 05/01/22 04:13 Eos # (Auto) 0.6 x10^3/uL (0.0-0.2) H 05/01/22 04:13 Baso # (Auto) 0.2 X10^3/uL (0.0-0.1) H 05/01/22 04:13 Absolute Nucleated RBC 1.3 /100WBC 05/01/22 04:13 Plt Morphology Comment Normal (NORMAL) 05/01/22 04:13 RBC Morphology Abnormal (NORMAL) A 05/01/22 04:13 Dimorphic RBCs 1+ 05/01/22 04:13 Hypochromasia 3+ A 05/01/22 04:13 Poikilocytosis 2+ A 05/01/22 04:13 Anisocytosis 3+ A 05/01/22 04:13 Microcytosis 2+ A 05/01/22 04:13 Spherocytes Slight A 04/28/22 04:15 Target Cells 1+ A 05/01/22 04:13 Tear Drop Cells Slight A 05/01/22 04:13 Stomatocytes Slight A 04/28/22 04:15 Acanthocytes (Spur) Slight 05/01/22 04:13 Schistocytes 1+ A 05/01/22 04:13 PT 18.4 SECONDS (11.8-14.3) 04/28/22 04:15 INR Target Range - 04/28/22 04:15 INR 1.59 (0.8-1.3) H 04/28/22 04:15 APTT 34.3 SECONDS (22.9-36.5) 04/28/22 04:15 PTT Comment - 04/28/22 04:15 D-Dimer 6.30 ug/ml (0.0-0.57) H 04/29/22 09:14 Sodium 145 mmol/L (136-145) 05/01/22 04:13 Corrected Sodium TNP 05/01/22 04:13 Potassium 3.5 mmol/L (3.5-5.1) 05/01/22 04:13 Chloride 112 mmol/L (98-107) H 05/01/22 04:13 Carbon Dioxide 27.9 mmol/L (21-32) 05/01/22 04:13 BUN 6 mg/dL (7-18) L 05/01/22 04:13 Creatinine 0.62 mg/dL (0.55-1.02) 05/01/22 04:13 Est GFR (MDRD) Af Amer > 60 (>60) 05/01/22 04:13 Est GFR (MDRD) Non-Af > 60 (>60) 05/01/22 04:13 Glucose 95 mg/dL (65-99) 05/01/22 04:13 Calcium 8.4 mg/dL (8.5-10.1) L 05/01/22 04:13 Corrected Calcium 9.5 mg/dL (8.5-10.1) 05/01/22 04:13 Magnesium 1.8 mg/dL (2.0-2.9) L 05/01/22 04:13 Iron 7 ug/dL (50-175) L 04/28/22 04:15 Transferrin 188 mg/dL (202-364) L 04/28/22 04:15 Ferritin 11 ng/mL (8-252) 04/28/22 04:15 Total Bilirubin 1.00 mg/dL (0.2-1.0) 05/01/22 04:13 AST 21 Units/L (15-37) 05/01/22 04:13 ALT 8 Units/L (12-78) L 05/01/22 04:13 Alkaline Phosphatase 98 Units/L (46-116) 05/01/22 04:13 Ammonia 36 umol/L (11-32) H 04/28/22 04:15 Creatine Kinase 62 Units/L (26-192) 04/27/22 16:52 Troponin I High Sens 8.2 ng/L (4.0-60.0) 04/27/22 16:52 Total Protein 5.1 g/dL (6.4-8.2) L 05/01/22 04:13 Albumin 2.6 g/dL (3.4-5.0) L 05/01/22 04:13 Globulin 2.5 g/dL (2.5-4.5) 05/01/22 04:13 Albumin/Globulin Ratio 1.0 Ratio (1.1-2.1) L 05/01/22 04:13 Vitamin B12 917 pg/mL (193-986) 04/28/22 04:15 Folate 11.6 ng/mL (>8.6) 04/28/22 04:15 Free T4 1.01 ng/dL (0.76-1.46) 04/29/22 09:14 TSH 3rd Generation 5.684 uIU/mL (0.358-3.74) H 04/29/22 09:14 Specimen Type Clean catch urine 04/27/22 16:38 Urine Color Dark yellow (YELLOW) 04/27/22 16:38 Urine Appearance Clear (CLEAR) 04/27/22 16:38 Urine pH 6.0 (5.0 - 8.0) 04/27/22 16:38 Ur Specific [place] 1.025 (1.000-1.030) 04/27/22 16:38 Urine Protein 2+ (NEGATIVE) 04/27/22 16:38 Urine Glucose (UA) Negative (NEGATIVE) 04/27/22 16:38 Urine Ketones 1+ (NEGATIVE) 04/27/22 16:38 Urine Blood 1+ (NEGATIVE) 04/27/22 16:38 Urine Nitrite Negative (NEGATIVE) 04/27/22 16:38 Urine Bilirubin 1+ (NEGATIVE) 04/27/22 16:38 Urine Urobilinogen 3+ (NORMAL) 04/27/22 16:38 Ur Leukocyte Esterase 1+ (NEGATIVE) 04/27/22 16:38 Urine RBC 0-2 /HPF (0-3) 04/27/22 16:38 Urine WBC 0-2 /HPF (0-5) 04/27/22 16:38 Ur Squamous Epith Cells Many /HPF (NEGATIVE) 04/27/22 16:38 Urine Bacteria 1+ /HPF (NEGATIVE) 04/27/22 16:38 Hyaline Casts Many /LPF (NEGATIVE) 04/27/22 16:38 Granular Casts Rare /LPF (NEGATIVE) 04/27/22 16:38 Urine Mucus Moderate /HPF (NEGATIVE) 04/27/22 16:38 Ur Culture Indicated? No/not indicated 04/27/22 16:38 Blood Type O POSITIVE 04/27/22 17:25 Antibody Screen Negative 04/27/22 17:25 Crossmatch See Detail 04/27/22 17:25 Plan (1) Atrial fibrillation with RVR: Status: Acute (2) Anemia: Status: Acute (3) Dehydration: Status: Acute (4) Mental handicap: Status: Acute (5) Emaciation: Status: Acute (6) Lymphedema due to chronic inflammation: Status: Acute (7) Electrolyte imbalance: Status: Acute
[2022-05-02 05:44] LABS: BASOPHILS # (AUTO) 0.1 X10^3/uL (0.0-0.1); BASOPHILS % (AUTO) 2.4 % (0.2-1.0); EOSINOPHILS # (AUTO) 0.6 x10^3/uL (0.0-0.2); EOSINOPHILS % (AUTO) 10.5 % (0.9-2.9); HEMATOCRIT 28.7 % (36.0-47.0); HEMOGLOBIN 8.4 g/dL (12.0-16.0); LYMPHOCYTES # (AUTO) 1.7 X10^3/uL (1.3-2.9); LYMPHOCYTES % (AUTO) 31.1 % (21.0-51.0); MEAN CORPUSCULAR HEMOGLOBIN 17.8 pg (27.0-34.0); MEAN CORPUSCULAR HGB CONC 29.2 g/dL (33.0-35.0); MEAN CORPUSCULAR VOLUME 60.8 fL (80.0-100.0); MEAN PLATELET VOLUME 8.8 fL (7.4-11.0); MONOCYTES # (AUTO) 0.6 x10^3/uL (0.3-0.8); MONOCYTES % (AUTO) 10.8 % (0.0-13.0); NEUTROPHILS # (AUTO) 2.4 x10^3/uL (2.2-4.8); NEUTROPHILS % (AUTO) 45.2 % (42.0-75.0); RED BLOOD COUNT 4.72 X10^6/uL (3.5-5.4); RED CELL DISTRIBUTION WIDTH 38.5 % (11.6-16.5); WHITE BLOOD COUNT 5.4 X10^3/uL (3.6-10.0)
[2022-05-02 05:45] LABS: ALANINE AMINOTRANSFERASE 8 Units/L (12-78); ALBUMIN 2.5 g/dL (3.4-5.0); ALKALINE PHOSPHATASE 97 Units/L (46-116); ASPARTATE AMINO TRANSFERASE 18 Units/L (15-37); BLOOD UREA NITROGEN 7 mg/dL (7-18); CALCIUM 8.2 mg/dL (8.5-10.1); CARBON DIOXIDE 28.9 mmol/L (21-32); CHLORIDE 112 mmol/L (98-107); COR CA(FOR HYPOALB) 9.4 mg/dL (8.5-10.1); CREATININE 0.63 mg/dL (0.55-1.02); MAGNESIUM 1.7 mg/dL (2.0-2.9); SODIUM 146 mmol/L (136-145); eGFR NON BLACK RACES > 60 (>60)
[2022-05-02 05:59] LABS: ANISOCYTOSIS 3+; HYPOCHROMASIA 3+; MICROCYTOSIS 2+; PLATELET MORPHOLOGY COMMENT NORMAL (NORMAL); POIKILOCYTOSIS 2+; SCHISTOCYTES PRESENT; TARGET CELLS PRESENT; TEAR DROP CELLS PRESENT
[2022-05-02] MEDS: MAGNESIUM SULFATE 1 GRAM/100 mL PREMIX 1 G/100 ML BAG IV PRN ×2 (06:05→10:32)
[2022-05-02] MEDS: K-DUR TAB 20 MEQ PO PRN (06:05)
[2022-05-02] MEDS: NS 1,000 ML IV 1,000 ML IV SCH ×4 (07:19→21:18)
[2022-05-02] MEDS: CLARITIN PO SCH (08:38)
[2022-05-02] MEDS: HEMOCYTE-PLUS PO SCH (08:39)
[2022-05-02] MEDS: TAB-A-VITE PO SCH (08:39)
[2022-05-02] MEDS: PROTONIX INJ 40 MG VIAL IVP SCH ×2 (08:39→21:18)
[2022-05-02] MEDS: LOPRESSOR TAB 25 MG PO SCH ×3 (08:39→21:18)
[2022-05-02] MEDS ORDERED: LASIX PO ONE (13:54)
[2022-05-02] MEDS ORDERED: K-DUR TAB 20 MEQ PO ONE (13:54)
[2022-05-03 05:08] LABS: ALANINE AMINOTRANSFERASE 12 Units/L (12-78); ALBUMIN 3.2 g/dL (3.4-5.0); ALKALINE PHOSPHATASE 114 Units/L (46-116); ASPARTATE AMINO TRANSFERASE 23 Units/L (15-37); BLOOD UREA NITROGEN 9 mg/dL (7-18); CALCIUM 8.8 mg/dL (8.5-10.1); CARBON DIOXIDE 26.2 mmol/L (21-32); CHLORIDE 109 mmol/L (98-107); COR CA(FOR HYPOALB) 9.4 mg/dL (8.5-10.1); CREATININE 0.68 mg/dL (0.55-1.02); SODIUM 145 mmol/L (136-145); TOTAL PROTEIN 6.4 g/dL (6.4-8.2); eGFR NON BLACK RACES > 60 (>60)
[2022-05-03 05:16] LABS: BASOPHILS # (AUTO) 0.1 X10^3/uL (0.0-0.1); BASOPHILS % (AUTO) 0.7 % (0.2-1.0); EOSINOPHILS # (AUTO) 0.4 x10^3/uL (0.0-0.2); HEMATOCRIT 34.4 % (36.0-47.0); HEMOGLOBIN 9.9 g/dL (12.0-16.0); LYMPHOCYTES # (AUTO) 0.8 X10^3/uL (1.3-2.9); LYMPHOCYTES % (AUTO) 8.5 % (21.0-51.0); MEAN CORPUSCULAR HEMOGLOBIN 17.9 pg (27.0-34.0); MEAN CORPUSCULAR HGB CONC 28.7 g/dL (33.0-35.0); MEAN CORPUSCULAR VOLUME 62.4 fL (80.0-100.0); MEAN PLATELET VOLUME 8.4 fL (7.4-11.0); MONOCYTES # (AUTO) 0.3 x10^3/uL (0.3-0.8); MONOCYTES % (AUTO) 3.1 % (0.0-13.0); NEUTROPHILS # (AUTO) 7.7 x10^3/uL (2.2-4.8); NEUTROPHILS % (AUTO) 83.7 % (42.0-75.0); RED BLOOD COUNT 5.51 X10^6/uL (3.5-5.4); WHITE BLOOD COUNT 9.2 X10^3/uL (3.6-10.0)
[2022-05-03 05:45] LABS: HYPOCHROMASIA 3+; PLATELET MORPHOLOGY COMMENT NORMAL (NORMAL)
[2022-05-03 05:46] LABS: ANISOCYTOSIS 3+; MICROCYTOSIS 2+; POIKILOCYTOSIS 2+; SCHISTOCYTES PRESENT; TARGET CELLS PRESENT; TEAR DROP CELLS PRESENT
--- NOTE | 2022-05-03 07:55 | RAD ---
HISTORYFever, tachycardiaSTUDYChest AP tiapzkazHWIKEISEMA25/24/2023FINDINGSHear t size is normal. Suzy are normal. Lung ash are clear. No pleural effusions are identified. Bony thorax is unremarkable.IMPRESSIONNo significant abnormality identifiedElectronically signed by: NOBLE MEDINA (May 03, 2022 07:54:20)
--- NOTE | 2022-05-03 07:57 | EKG ---
Test Reason : Tachycardia Blood Pressure : */* mmHG Vent. Rate : 85 BPM Atrial Rate : 85 BPM P-R Int : 152 ms QRS Dur : 86 ms QT Int : 412 ms P-R-T Axes : 62 72 59 degrees QTc Int : 490 ms Normal sinus rhythm Possible Left atrial enlargement Nonspecific ST and T wave abnormality Prolonged QT Abnormal ECG When compared with ECG of 29-APR-2022 09:01, Minimal criteria for Inferior infarct are no longer present T wave inversion more evident in Anterior leads Confirmed by Josué Hayes ([id number]) on 05/03/2022 3:35:48 PM Referred By: Confirmed By: Josué Hayes
[2022-05-03] MEDS ORDERED: ROCEPHIN 1 GRAM IV PREMIX 1 G/50 ML IV.SOLN. IV SCH (09:00)
[2022-05-03] MEDS ORDERED: ZESTRIL TAB 5 MG PO SCH (09:00)
[2022-05-03] MEDS: ROCEPHIN VIAL 1 GRAM 1 G in NS 100 ML IV 100 ML IV SCH (09:21)
[2022-05-03] MEDS ORDERED: TYLENOL SUPP 650 MG PR PRN (09:26)
[2022-05-03 10:14] LABS: BILIRUBIN,URINE 1+ (NEGATIVE); BLOOD/HEMOGLOBIN,URINE 1+ (NEGATIVE); GLUCOSE, URINE NEGATIVE (NEGATIVE); KETONES,URINE NEGATIVE (NEGATIVE); LEUKOCYTE ESTERASE ,URINE 1+ (NEGATIVE); NITRITES,URINE NEGATIVE (NEGATIVE); PROTEIN,URINE 2+ (NEGATIVE); UROBILINOGEN,URINE 3+ (NORMAL)
[2022-05-03 10:15] LABS: APPEARANCE,URINE HAZY (CLEAR); COLOR,URINE YELLOW (YELLOW)
[2022-05-03] MEDS: NS 1,000 ML IV 1,000 ML IV SCH ×4 (10:15→22:05)
[2022-05-03] MEDS: PROTONIX INJ 40 MG VIAL IVP SCH ×2 (10:16→21:40)
[2022-05-03 10:31] LABS: RBC,URINE 0-2 /HPF (0-3); SQUAMOUS EPITHELIAL CELL,UR MANY /HPF (NEGATIVE)
[2022-05-03 10:32] LABS: BACTERIA,URINE NEGATIVE /HPF (NEGATIVE)
--- NOTE | 2022-05-03 12:11 | VAS ---
HISTORY: Concern for carotid artery stenosis. TIA versus CVA.EXAM: BILATERAL DOPPLER CAROTID ULTRASOUND EXAMTechnique: Multiple ford scale and color flow Doppler images of the right and left carotid arterial system were obtained.The vertebral arterial system was evaluated as well.Findings: Nonocclusive color flow Doppler is seen throughout the right and left carotid arterial system. No hemodynamically significant internal carotid arterial stenosis is seen based on velocity criteria. There is mild bilateral carotid atherosclerosis and soft atherosclerotic plaque formation of the bilateral carotid bulbs and ICAs with associated intimal thickening but without sonographic evidence for high-grade stenosis (>70%) or occlusion of the carotid arteries. The right and left vertebral artery demonstrate antegrade flow.IMPRESSION:Abnormally elevated velocities are seen within the right common carotid arteries in the 50-69% stenosis range.Mild bilateral carotid atherosclerosis and soft atherosclerotic plaque formation of the bilateral carotid bulbs and [in both] ICAs with [id number] associated carotid intimal thickening but without evidence for high-grade stenosis or occlusion of the carotid arteries, based on Doppler velocity criteria.Appropriate, antegrade, vertebral arterial flow.Peak right ICA velocity: 107 centimeter/seconds.Peak right CCA velocity: 181 centimeter/seconds.Peak left ICA velocity: 124 centimeter/seconds.Peak left CCA velocity: 118 centimeter/seconds.Right ICA to CCA ratio: 1.4.Left ICA to CCA ratio: 1.3.Electronically signed by: MARIA ESTHER FINCH III (May 03, 2022 12:08:52)
[2022-05-03] MEDS: LOPRESSOR TAB 25 MG PO SCH ×2 (12:47→21:40)
[2022-05-03] MEDS: CLARITIN PO SCH (12:47)
[2022-05-03] MEDS: TAB-A-VITE PO SCH (12:47)
[2022-05-03] MEDS: HEMOCYTE-PLUS PO SCH (12:47)
--- NOTE | 2022-05-03 12:54 | CT ---
HISTORYAltered mental statusSTUDYCT head without contrastTechnique: Axial noncontrast images with coronal and sagittal reformats. Dose reduction procedures were used with mA/kv adjusted for body size.COMPARISONNoneFINDINGSThe ventricles are normal in size, shape, and position. There is slight decreased attenuation in the periventricular white matter suggestive of small vessel vascular disease. There are no focal areas of abnormal attenuation to suggest recent or remote CVA, hemorrhage, mass lesion, or extra-axial fluid collection. The visualized sinuses are clear. The calvarium is intact. There is a question of some mild enlargement of the pituitary gland measuring 9 mm in the craniocaudal dimension. Evaluation with MRI of the sella with and without contrast should be considered. If acute CVA remains a strong clinical consideration MRI with diffusion imaging would be of further diagnostic value in should be considered.IMPRESSIONNo acute intracranial abnormality identified. See recommendation as aboveMild small vessel diseaseMild enlargement of the pituitary gland for which further evaluation with MRI of the sella with and without contrast should be considered.Electronically signed by: NOBLE MEDINA (May 03, 2022 12:53:37)
[2022-05-04 05:13] LABS: BASOPHILS # (AUTO) 0.1 X10^3/uL (0.0-0.1); BASOPHILS % (AUTO) 1.1 % (0.2-1.0); EOSINOPHILS % (AUTO) 0.4 % (0.9-2.9); HEMATOCRIT 28.3 % (36.0-47.0); HEMOGLOBIN 8.3 g/dL (12.0-16.0); LYMPHOCYTES % (AUTO) 9.8 % (21.0-51.0); MEAN CORPUSCULAR HEMOGLOBIN 18.5 pg (27.0-34.0); MEAN CORPUSCULAR HGB CONC 29.2 g/dL (33.0-35.0); MEAN CORPUSCULAR VOLUME 63.2 fL (80.0-100.0); MEAN PLATELET VOLUME 8.5 fL (7.4-11.0); MONOCYTES # (AUTO) 0.5 x10^3/uL (0.3-0.8); MONOCYTES % (AUTO) 4.9 % (0.0-13.0); NEUTROPHILS # (AUTO) 8.9 x10^3/uL (2.2-4.8); NEUTROPHILS % (AUTO) 83.8 % (42.0-75.0); RED BLOOD COUNT 4.48 X10^6/uL (3.5-5.4); RED CELL DISTRIBUTION WIDTH 40.9 % (11.6-16.5); WHITE BLOOD COUNT 10.6 X10^3/uL (3.6-10.0)
[2022-05-04 05:33] LABS: ALANINE AMINOTRANSFERASE 8 Units/L (12-78); ALBUMIN 2.3 g/dL (3.4-5.0); ALKALINE PHOSPHATASE 72 Units/L (46-116); ASPARTATE AMINO TRANSFERASE 24 Units/L (15-37); BLOOD UREA NITROGEN 13 mg/dL (7-18); CARBON DIOXIDE 24.4 mmol/L (21-32); CHLORIDE 111 mmol/L (98-107); COR CA(FOR HYPOALB) 9.4 mg/dL (8.5-10.1); CREATININE 0.64 mg/dL (0.55-1.02); SODIUM 144 mmol/L (136-145); TOTAL PROTEIN 4.9 g/dL (6.4-8.2); eGFR NON BLACK RACES > 60 (>60)
[2022-05-04 05:44] LABS: HYPOCHROMASIA 3+; PLATELET MORPHOLOGY COMMENT NORMAL (NORMAL)
[2022-05-04 05:45] LABS: ANISOCYTOSIS 3+; MICROCYTOSIS 2+; POIKILOCYTOSIS 1+; SCHISTOCYTES PRESENT; TARGET CELLS PRESENT; TEAR DROP CELLS PRESENT
[2022-05-04] MEDS ORDERED: POTASSIUM CHLORIDE IV ONE ×3 (08:00)
[2022-05-04] MEDS ORDERED: NS IV ONE ×3 (08:00)
[2022-05-04] MEDS ORDERED: [UNRECOGNIZED DRUG - OTHER] IV ONE ×3 (08:00)
[2022-05-04] MEDS: TAB-A-VITE PO SCH (09:06)
[2022-05-04] MEDS: CLARITIN PO SCH (09:06)
[2022-05-04] MEDS: HEMOCYTE-PLUS PO SCH (09:06)
[2022-05-04] MEDS: LOPRESSOR TAB 25 MG PO SCH ×2 (09:06→20:49)
[2022-05-04] MEDS: PROTONIX INJ 40 MG VIAL IVP SCH ×2 (09:07→20:49)
[2022-05-04] MEDS: ROCEPHIN VIAL 1 GRAM 1 G in NS 100 ML IV 100 ML IV SCH (09:07)
[2022-05-04 09:33] LABS: CRYPTOSPORIDIUM PARVUM ANTIGEN NEGATIVE (NEGATIVE); GIARDIA LAMBLIA ANTIGEN NEGATIVE (NEGATIVE)
[2022-05-04] MEDS: BIAXIN TAB 500 MG PO SCH ×2 (14:45→20:49)
[2022-05-04] MEDS: FLAGYL TAB 500 MG PO SCH ×2 (14:45→21:00)
[2022-05-04] MEDS: NS + KCL 20 MEQ/L 1,000 ML IV SCH ×2 (14:46→23:32)
--- NOTE | 2022-05-04 15:55 | MRI ---
HISTORYAMS, R/O CVA ONSET YESTERDAYSTUDYBRAIN W/O CONCOMPARISONNone available.TECHNIQUENon-contrast MRI images of the brain were obtained utilizing a routine protocol.FINDINGSPeriventricular chronic microvascular disease.Age related global atrophy.No abnormal signal in the dural sinuses on the sagittal T1 sequence.Pituitary gland and stalk appear normal.No mass effect on the optic chiasm.No Chiari 1 malformation.Imaged portion of the spine and spinal cord appear grossly normal.No restricted diffusion.Flow voids appear normal on the T2 sequence.No intracranial, extra-axial, fluid collection.No mass, mass effect or midline shift.6 x 5 mm focus of increased T2 signal in the left anterior centrum semiovale; without mass effect.No blooming artifact in the brain parenchyma.Sinuses are well aeratedMastoid air cells are well aerated.Globes and intra-orbital contents appear normal.IMPRESSION1. No acute intracranial abnormality identified.2. 6 x 5 mm focus of increased T2 signal in the left anterior centrum semiovale; without mass effect. Finding could represent a small focus of encephalomalacia or early microvascular disease.Electronically signed by: Dipak Ryder (May 04, 2022 15:53:44)
[2022-05-05 04:44] LABS: BASOPHILS # (AUTO) 0.1 X10^3/uL (0.0-0.1); BASOPHILS % (AUTO) 1.2 % (0.2-1.0); EOSINOPHILS # (AUTO) 0.4 x10^3/uL (0.0-0.2); EOSINOPHILS % (AUTO) 6.3 % (0.9-2.9); HEMOGLOBIN 8.4 g/dL (12.0-16.0); LYMPHOCYTES # (AUTO) 1.4 X10^3/uL (1.3-2.9); LYMPHOCYTES % (AUTO) 22.4 % (21.0-51.0); MEAN CORPUSCULAR HEMOGLOBIN 18.6 pg (27.0-34.0); MEAN CORPUSCULAR VOLUME 64.1 fL (80.0-100.0); MEAN PLATELET VOLUME 8.4 fL (7.4-11.0); MONOCYTES # (AUTO) 0.9 x10^3/uL (0.3-0.8); MONOCYTES % (AUTO) 14.8 % (0.0-13.0); NEUTROPHILS # (AUTO) 3.4 x10^3/uL (2.2-4.8); NEUTROPHILS % (AUTO) 55.3 % (42.0-75.0); RED BLOOD COUNT 4.53 X10^6/uL (3.5-5.4); RED CELL DISTRIBUTION WIDTH 43.2 % (11.6-16.5); WHITE BLOOD COUNT 6.1 X10^3/uL (3.6-10.0)
[2022-05-05 04:52] LABS: ALANINE AMINOTRANSFERASE 10 Units/L (12-78); ALBUMIN 2.4 g/dL (3.4-5.0); ALKALINE PHOSPHATASE 81 Units/L (46-116); ASPARTATE AMINO TRANSFERASE 27 Units/L (15-37); BLOOD UREA NITROGEN 9 mg/dL (7-18); CALCIUM 7.8 mg/dL (8.5-10.1); CARBON DIOXIDE 24.4 mmol/L (21-32); CHLORIDE 112 mmol/L (98-107); COR CA(FOR HYPOALB) 9.1 mg/dL (8.5-10.1); CREATININE 0.64 mg/dL (0.55-1.02); SODIUM 145 mmol/L (136-145); eGFR NON BLACK RACES > 60 (>60)
[2022-05-05 05:02] LABS: PLATELET MORPHOLOGY COMMENT NORMAL (NORMAL)
[2022-05-05 05:03] LABS: ANISOCYTOSIS 3+; HYPOCHROMASIA 3+; MICROCYTOSIS 2+; POIKILOCYTOSIS 1+; TARGET CELLS PRESENT; TEAR DROP CELLS PRESENT
[2022-05-05 05:04] LABS: SCHISTOCYTES PRESENT
[2022-05-05] MEDS: FLAGYL TAB 500 MG PO SCH (05:16)
[2022-05-05] MEDS: K-DUR TAB 20 MEQ PO PRN (05:16)
[2022-05-05] MEDS: MAGNESIUM SULFATE 1 GRAM/100 mL PREMIX 1 G/100 ML BAG IV PRN ×2 (06:10→07:24)
[2022-05-05] MEDS: HEMOCYTE-PLUS PO SCH (08:37)
[2022-05-05] MEDS: CLARITIN PO SCH (08:37)
[2022-05-05] MEDS: TAB-A-VITE PO SCH (08:38)
[2022-05-05] MEDS: LOPRESSOR TAB 25 MG PO SCH (08:38)
[2022-05-05] MEDS: BIAXIN TAB 500 MG PO SCH (08:38)
[2022-05-05] MEDS: PROTONIX INJ 40 MG VIAL IVP SCH (08:53)
[2022-05-05] MEDS: ROCEPHIN VIAL 1 GRAM 1 G in NS 100 ML IV 100 ML IV SCH (08:53)
[2022-05-05 12:09] VITALS: BP 113/61
[2022-05-05] MEDS: NS + KCL 20 MEQ/L 1,000 ML IV SCH (12:32)
== END 2022-05-05 12:50 | disposition home or self-care (01) | DRG 308 ==
LOC: ER 16:04 → ICU 16:04 → OBSVTOIN 21:22 → ICU 21:32
PROVIDERS: ADMIT Internal Medicine; ATTEND Internal Medicine
DX: Z59.89 Other problems related to housing and economic circumstances; D64.9 Anemia, unspecified; Z20.822 Contact with and (suspected) exposure to COVID-19; R06.02 Shortness of breath; R26.89 Other abnormalities of gait and mobility; D61.818 Other pancytopenia; R47.81 Slurred speech; Z59.1 Inadequate housing; R79.1 Abnormal coagulation profile; R64 Cachexia; E87.6 Hypokalemia; Z59.41 Food insecurity; R46.0 Very low level of personal hygiene; B96.81 Helicobacter pylori [H. pylori] as the cause of diseases classified elsewhere; F71 Moderate intellectual disabilities; E83.42 Hypomagnesemia; R53.1 Weakness; R41.82 Altered mental status, unspecified; E43 Unspecified severe protein-calorie malnutrition; R00.0 Tachycardia, unspecified; E23.6 Other disorders of pituitary gland; I48.91 Unspecified atrial fibrillation; I89.0 Lymphedema, not elsewhere classified